=== PATIENT | male | born 1975 | race African-American/Black ===

== ENCOUNTER 2020-02-19 17:07 | Inpatient (IN) ==
[2020-02-19] MEDS ORDERED: NITROGLYCERIN 2% OINTMENT 30GM TUBE EXT STA (17:41)
[2020-02-19] MEDS ORDERED: FUROSEMIDE 40 MG/4 ML VIAL IV STA (17:41)
[2020-02-19 18:09] LABS: Basophils # (auto) 0.01 K/uL (0-0.2); Basophils % (auto) 0.1 %; Eosinophils # (auto) 0.05 K/uL (0-0.5); Eosinophils % (auto) 0.5 %; Hematocrit (blood only) 53.9 % (42-52); Hemoglobin 16.9 g/dL (14.0-18.0); Immature Granulocytes # (auto) 0.01 K/uL (0.00-0.02); Immature Granulocytes % (auto) 0.1 %; Lymphocytes # (auto) 1.09 K/uL (1.2-3.4); Lymphocytes % (auto) 11.5 %; Mean Corpuscular Hgb Conc 31.4 g/dL (32-36); Mean Corpuscular Volume 95.7 fL (80-100); Mean Platelet Volume 9.7 fL (7.4-10.4); Monocytes # (auto) 0.96 K/uL (0.11-0.59); Monocytes % (auto) 10.2 %; Neutrophils # (auto) 7.33 K/uL (1.4-6.5); Neutrophils % (auto) 77.6 %; Platelet Count 186 K/uL (130-400); RDW Standard Deviation 52.4 fL (36.4-46.3); Red Blood Count 5.63 M/uL (4.7-6.1); White Blood Count 9.45 K/uL (4.8-10.8)
--- NOTE | 2020-02-19 18:12 | XRay Report ---
XR chest 1V portable CLINICAL HISTORY: Dyspnea COMPARISON STUDY: No previous studies for comparison. FINDINGS: The heart is enlarged. There is radiographic evidence of mild pulmonary vascular congestion . There is no lobar consolidation. There are no significant pleural effusions. Interstitial markings may be accentuated due to the patient's large body habitus.[ IMPRESSION: Cardiomegaly and radiographic evidence of mild pulmonary vascular congestion. No lobar co nsolidation ACT 112: Negative or not required by law. Electronically signed by: Shahzad uLcio M.D. 02/19/2020 6:11 PM
[2020-02-19 18:20] LABS: INR 1.3 (0.9-1.1); Partial Thromboplastin Ratio 0.9; Partial Thromboplastin Time 26.3 Seconds (21.0-31.0); Prothrombin Time 13.3 Seconds (9.0-12.0)
[2020-02-19 18:25] LABS: BUN Creatinine Ratio 11.3 (10-20); Calcium 8.5 mg/dl (8.5-10.1); Est GFR (African American) 97.8; Est GFR (Non-African American) 84.3; Magnesium 1.9 mg/dl (1.8-2.4); Potassium 4.5 mmol/L (3.5-5.1)
[2020-02-19 18:30] LABS: Albumin Globulin Ratio 0.8 (0.9-2); Bilirubin,Total 0.4 mg/dl (0.2-1); Globulin 3.7 gm/dl (2.5-4.0); Total Protein 6.7 gm/dl (6.4-8.2)
[2020-02-19] MEDS ORDERED: ACETAMINOPHEN 500 MG TAB PO STA (19:02)
--- NOTE | 2020-02-19 19:38 | History & Physical Report ---
Date of Service February 19, 2020 Assessment & Plan (1) CHF (congestive heart failure): Patient is a 44-year-old male with no past medical history who presents with 1 year of slowly progressive lower extremity and abdominal edema acutely worsened over the last month. He has had new right-sided leg edema with additional scrotal/penile edema in the last week. He has been admitted for fluid overload with new oxygen requirement and new left bundle branch block. Acute hypoxic respiratory failure 2/2 CHF Patient with progressive lower extremity and lower abdominal swelling over the last year, progressive weight gain New shortness of breath over the last month, does not sleep laying down Chest x-ray shows cardiomegaly and radiographic evidence of mild pulmonary vascular congestion. No lobar consolidation No chest pain, no signs of ACS but patient had a left bundle branch block not previously known at urgent care Troponin as below, mild increase BNP 2090 TTE pending Brisk diuresis to Lasix 60 mg in ED, continue Lasix 3 times daily. KCl 20meq TID while diuresing. BMP ordered Q12, hold/reduce lasix if Cr bumps May [place] cath for patient comfort while diuresing Patient hypertensive on arrival to ED, good clinical response to both breathing and blood pressure to nitroglycerin 1 inch, continue at this time Nasal cannula oxygen as needed, titrate SPO2 greater than 90 Continue aggressive diuresis, follow clinically Elevated troponin Patient without current or prior chest pain Troponin mildly elevated to 0.132, trend every 6 hours x3 TTE pending as above Elevated INR, AST No known liver disease Patient denies any current or former alcohol use Given body habitus? Hepatic steatosis Liver ultrasound pending Daily tobacco use Nicotine patch 14 mg as needed Nicorette gum as needed Severe obesity, increased body habitus with high neck circumference Patient suspicious for hypo-ventilation syndrome/KATHLEEN No CPAP at home Defer CPAP overnight, will follow clinically but if patient with desats recommend counseling patient and trial at 10 mm H2O. Elevated H&H suggest may have some chronicity. DVT prophylaxis: Lovenox 40 mg every 12 hours FEN GI: No IV fluids, diuresing. Low-sodium diet CODE STATUS: Full code, discussed with patient Disposal: MedSurg with telemetry (2) Acute hypoxemic respiratory failure: (3) Bilateral edema of lower extremity: (4) LBBB (left bundle branch block): History of Present Illness Chief Complaint: Leg Swelling / Acute Hypoxia Primary Care Provider: NO PCP Mr. Ferrer is a 44yo M who presented to the ED with progressive L leg edema, R leg edema, abdominal edema, and new penile/scrotal edema. He recently moved to [place] from [place] ~1 year ago, had a doctor there but rarely/never went. Mr. Ferrer reports he has been increasing short of breath for several weeks. He notes about 1 year ago he had left leg swelling better in the mornign and worse throughout the day. In the last few months he has also had R leg swelling. He notes he sleeps sitting up because it is more comfortable, but is not sure if laying flat has any effect on his breathing. He denies chest pain, chest pressure, palpitations, dizziness, syncope, and presyncope. He denies past history of cardiac disease, diabetes. He endorses daily tobacco use. He has no heart disease in first-degree relatives, endorses a history of diabetes in his mother. Denies change in sensation is his extremities, denies recent illness including fever/chills/sweats and cold-like symptoms. Endorses a "smoker's c ough "for several weeks which improves throughout the day. He notes that his leg swelling improves after his legs are up overnight, but steadily worsened throughout the day. No other attempted treatments. He is seen with his girlfriend, who notes that he frequently eats deli meats. MHX: Denies other medical history Meds: Denies any chronic medications SHx: No surgical hx Social: Endorses 1ppd tobacco use history x26 years. Denies alcohol use. Endorses marijuana use, denies other recreational drug use. Lives at a home with his girlfriend. Code Status: Full Code Allergies Allergy/AdvReac Type Severity Reaction Status Date / Time shellfish derived Allergy EDEMA Verified 02/19/20 19:15 Home Medications Home Medications Medication Instructions Recorded Confirmed Type Otc Diurex Max 2 tabs PO Q6 PRN 02/19/20 02/19/20 History Past Med/Surg History Family History (Updated 02/19/20 @ 22:06 by Ema Camacho DO) Other Diabetes Hypertension Social History Smoking Status: Current every day smoker Tobacco Type: Cigarettes Cigarettes Per Day: 20; Do You Dip or Chew Tobacco: No; Hx Alcohol Use: No Hx Substance Use: Yes Last Used Substance: Days (ago) Preferred Language: Grenadian Collections Curator Required: No Beliefs That Will Affect Care: None Current Living Situation: Significant Other Feels Safe at Home: Yes Safety Concerns: Feels Safe At This Time Review of Systems Review of Systems: Constitutional: Denies fever, chills, malaise. Endorses weight gain of unknown amount Eyes: Denies vision change ENT: Denies ear pain, sore throat, sinus pain Cardiovascular: Denies Chest pain, chest pressure, palpitations. Endorses extremity swelling Respiratory: Endorses shortness of breath with chronic minimally productive cough. Gastrointestinal: Denies abdominal pain, nausea, vomiting, constipation, diarrhea. Endorses abdominal swelling. Genitourinary: Denies pain with urination, urinary urgency, urinary frequency. Endorses penis and scrotal swelling Musculoskeletal: Denies acute weakness, muscle aches/pain, joint aches/pain Integumentary:Denies acute rash, lesions, bruising Neurological: Denies headache, numbness, tingling, focal weakness Physical Exam Physical Exam: General: A&Ox3. NAD. Cooperative. HEENT: Atraumatic, normocephalic. Pulm: Distant breath sounds, moderate air movement, crackles appreciated at the lung bases bilaterally. On oxygen nasal cannula. Cardiac: RRR, -mrg. Radial pulses intact and symmetrical. Abdominal: Obese, distended, edema present through the low abdomen. Nontender, bowel sounds intact. : Scrotal and penile edema present. CN II: Visual duong are full to confrontation. Pupils are equal and react to light and accomidation. Visual acuity grossly intact. CN III, IV, : At primary gaze, there is no eye deviation. EoM intact without nystagmus. CN VII: No facial asymmetry CN VII: Hearing is grossly intact. CN IX, X: Phonation is normal without dysarthria. CN XI: Head turning and shoulder shrug are intact Extremity: Right and left legs grossly edematous with tense slightly pitting edema through the thigh. 1 cm superficial abrasion present on right medial lower leg, no purulence or erythema. Nontender to palpation bilaterally. Sensory: Light touch intact in upper and low extremities without deficit or asymmetry. 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, interosseous 5/5 LUE: Shoulder flexion/extension/internal rotation/external rotation, elbow flexion/extension, finger flexion/extension, television maintenance worker strength, interosseous 5/5 RLE: Hip flexion, knee flexion/extension, ankle plantar flexion/dorsiflexion 5/5 LLE: Hip flexion, knee flexion/extension, ankle plantar flexion/dorsiflexion 5/5 Results & Data Results & Data ([facility]) Vital Signs (Past 12 Hours) Vital Signs Temp Pulse Resp BP Pulse Ox 02/19/20 17:27 86 L 02/19/20 17:12 36.9 C 91 H 26 H 180/117 H 86 L Laboratory Results Lab Results 02/19/20 02/19/20 02/19/20 Range/Units 18:00 18:00 18:00 WBC 9.45 (4.8-10.8) K/uL RBC 5.63 (4.7-6.1) M/uL Hgb 16.9 (14.0-18.0) g/dL Hct 53.9 H (42-52) % MCV 95.7 (80-100) fL MCH 30.0 (25-34) pg MCHC 31.4 L (32-36) g/dL RDW Std Deviation 52.4 H (36.4-46.3) fL RDW Coeff of Tramaine 15.0 H (11.5-14.5) % Plt Count 186 (130-400) K/uL MPV 9.7 (7.4-10.4) fL Immature Gran % (Auto) 0.1 % Neut % (Auto) 77.6 % Lymph % (Auto) 11.5 % Cole % (Auto) 10.2 % Eos % (Auto) 0.5 % Baso % (Auto) 0.1 % Neut # (Auto) 7.33 H (1.4-6.5) K/uL Lymph # (Auto) 1.09 L (1.2-3.4) K/uL Cole # (Auto) 0.96 H (0.11-0.59) K/uL Eos # (Auto) 0.05 (0-0.5) K/uL Baso # (Auto) 0.01 (0-0.2) K/uL Immature Gran # (Auto) 0.01 (0.00-0.02) K/uL PT 13.3 H (9.0-12.0) Seconds INR 1.3 H (0.9-1.1) APTT 26.3 (21.0-31.0) Seconds PTT Ratio 0.9 Sodium 141 (136-145) mmol/L Potassium 4.5 (3.5-5.1) mmol/L Chloride 102 (98-107) mmol/L Carbon Dioxide 38 H (21-32) mmol/L Anion Gap 1.0 L (3-11) BUN 12 (7-18) mg/dl Creatinine 1.06 (0.6-1.4) mg/dl Est Cr Clr Drug Dosing 166.0 ml/min Est GFR ( Amer) 97.8 Est GFR (Non-Af Amer) 84.3 BUN/Creatinine Ratio 11.3 (10-20) Glucose 91 (70-99) mg/dl Calcium 8.5 (8.5-10.1) mg/dl Magnesium 1.9 (1.8-2.4) mg/dl Total Bilirubin 0.4 (0.2-1) mg/dl AST 38 H (15-37) U/L ALT 43 (12-78) U/L Alkaline Phosphatase 66 (45-117) U/L Troponin I (0-0.045) ng/ml NT-Pro-B Natriuret Pep 2091 H (0-450) pg/ml Total Protein 6.7 (6.4-8.2) gm/dl Albumin 3.0 L (3.4-5.0) gm/dl Globulin 3.7 (2.5-4.0) gm/dl Albumin/Globulin Ratio 0.8 L (0.9-2) 02/19/20 Range/Units 19:17 WBC (4.8-10.8) K/uL RBC (4.7-6.1) M/uL Hgb (14.0-18.0) g/dL Hct (42-52) % MCV (80-100) fL MCH (25-34) pg MCHC (32-36) g/dL RDW Std Deviation (36.4-46.3) fL RDW Coeff of Tramaine (11.5-14.5) % Plt Count (130-400) K/uL MPV (7.4-10.4) fL Immature Gran % (Auto) % Neut % (Auto) % Lymph % (Auto) % Cole % (Auto) % Eos % (Auto) % Baso % (Auto) % Neut # (Auto) (1.4-6.5) K/uL Lymph # (Auto) (1.2-3.4) K/uL Cole # (Auto) (0.11-0.59) K/uL Eos # (Auto) (0-0.5) K/uL Baso # (Auto) (0-0.2) K/uL Immature Gran # (Auto) (0.00-0.02) K/uL PT (9.0-12.0) Seconds INR (0.9-1.1) APTT (21.0-31.0) Seconds PTT Ratio Sodium (136-145) mmol/L Potassium (3.5-5.1) mmol/L Chloride (98-107) mmol/L Carbon Dioxide (21-32) mmol/L Anion Gap (3-11) BUN (7-18) mg/dl Creatinine (0.6-1.4) mg/dl Est Cr Clr Drug Dosing ml/min Est GFR ( Amer) Est GFR (Non-Af Amer) BUN/Creatinine Ratio (10-20) Glucose (70-99) mg/dl Calcium (8.5-10.1) mg/dl Magnesium (1.8-2.4) mg/dl Total Bilirubin (0.2-1) mg/dl AST (15-37) U/L ALT (12-78) U/L Alkaline Phosphatase (45-117) U/L Troponin I 0.132 H* (0-0.045) ng/ml NT-Pro-B Natriuret Pep (0-450) pg/ml Total Protein (6.4-8.2) gm/dl Albumin (3.4-5.0) gm/dl Globulin (2.5-4.0) gm/dl Albumin/Globulin Ratio (0.9-2) Diagnostic Findings XR chest 1V portable CLINICAL HISTORY: Dyspnea COMPARISON STUDY: No previous studies for comparison. FINDINGS: The heart is enlarged. There is radiographic evidence of mild pulmonary vascular congestion. There is no lobar consolidation. There are no significant pleural effusions. Interstitial markings may be accentuated due to the patient's large body habitus.[ IMPRESSION: Cardiomegaly and radiographic evidence of mild pulmonary vascular congestion. No lobar consolidation ACT 112: Negative or not required by law. Electronically signed by: Shahzad Lucio M.D. 02/19/2020 6:11 PM Dictated: 02/19/201809 Transcribed: 02/19/201809 ECG Additional Comments: EKG with sinus rhythm with sinus arrhythmia, LBBB, UN=377, SMF=876, EWj=783 Supervising Physician Co-Signing Physician Notes Patient seen and examined, chart reviewed, case discussed with Dr. Albert and I agree with his assessment and plan as docuemented above Resident Activity Tracking Resident Involvement: Resident Care Provided Care Provided: Adult Hospital Medicine
--- NOTE | 2020-02-19 20:25 | Emergency Department Note ---
History of Present Illness General Chief complaint: Edema To Extremity Stated complaint: EDEMA TO BOTH LEGS Source: patient and family Mode of arrival: ambulatory Limitations: no limitations History of Present Illness Provider complaint: Increased swelling Maximum Pain Intensity: 6 This patient is a 44-year-old male who presents emergency department with complaints of swelling from the lower extremities up through the mid abdomen. He noted today that his penis and scrotum developed edema and became concerned. He has always had some dependent edema in his left lower extremity but now his right side is affected as well. Patient states he initially blamed some exertional dyspnea on a new "vape cartridge." He denies any chest pain. Patient denies any fevers, cough, vomiting or diarrhea. He does not see a physician regularly. Home Medications Home Medications Medication Instructions Recorded Confirmed Type Otc Diurex Max 2 tabs PO Q6 PRN 02/19/20 02/19/20 History Allergies Allergy/AdvReac Type Severity Reaction Status Date / Time shellfish derived Allergy EDEMA Verified 02/19/20 19:15 Past Med/Surg History Social History Smoking Status: Current every day smoker Tobacco Type: Cigarettes Feels Safe at Home: Yes Review of Systems See HPI for pertinent positives & negatives. and A total of 10 systems reviewed and were otherwise negative Physical Exam Vital Signs Vital Signs - 24 hr 02/19/20 17:12 02/19/20 17:27 Temperature 36.9 C Temperature Source Oral Pulse Rate 91 H Respiratory Rate 26 H Blood Pressure 180/117 H Blood Pressure Mean 138 Pulse Oximetry 86 L 86 L Oxygen Delivery Method Room Air Room Air Nasal Cannula Oxygen Flow Rate 0 Sepsis Recent Fever Within 48 Hours No Sepsis New/Unexplained Change in Mental Status No Sepsis Action Taken by Nursing No Action Required Oxygen Flow Rate - Titration 2 Pulse Oximetry Post Tiitration 96 Vital signs reviewed. General: Chronically ill-appearing, morbidly obese 44-year-old male HEENT: No scleral icterus, PERRLA, neck supple. Atraumatic. Cardiovascular: Regular rate and rhythm Pulmonary: Crackles to the lower lung duong bilaterally, increased work of breathing on nasal cannula oxygen. Abdomen: Soft, nontender, distended and morbidly obese with tense edema to the umbilicus. Musculoskeletal: Atraumatic, significant lower extremity edema bilaterally. Neurologic: Patient awake alert and oriented x 3 Skin: Warm, dry, 1 cm open, weeping wound to the right anterior ervin. Course Administered Medications Discontinued Medications Acetaminophen (Tylenol) 1,000 mg PO NOW STA Stop: 02/19/20 19:03 Last Admin: 02/19/20 19:20 Dose: 1,000 mg Documented by: [id number] Furosemide (Lasix) 60 mg IV NOW STA Stop: 02/19/20 17:42 Last Admin: 02/19/20 18:09 Dose: 60 mg Documented by: [id number] Nitroglycerin (Nitro-Bid 2%) 1 inch EXT NOW STA Stop: 02/19/20 17:42 Last Admin: 02/19/20 18:09 Dose: 1 inch Documented by: [id number] Critical Care Time Critical Care Time: Yes I have personally spent greater than 30 minutes of critical care time in the direct management of this patient. This includes bedside care, interpretation of diagnostic studies, and testing, discussion with consultants, patient, and family members, and other required patient management activities. This 30 minutes is in excess of all separately billable procedures. Medical Decision Making Differential Diagnosis Differential diagnosis: Etiologies such as infections, reactive airway disease, COPD, pneumonia, pleural effusion, pulmonary edema, ARDS, pneumothorax, CHF, cardiac ischemia, cardiac tamponade, dysrhythmia, anemia, pulmonary embolism, musculoskeletal, gastrointestinal process, as well as others were entertained. Home Medications Current Medication List: was personally reviewed by me Laboratory Data Attestation: I reviewed the patient's lab results. Result diagrams: 02/19/20 18:00 02/19/20 18:00 Lab Results 02/19/20 02/19/20 02/19/20 Range/Units 18:00 18:00 18:00 WBC 9.45 (4.8-10.8) K/uL RBC 5.63 (4.7-6.1) M/uL Hgb 16.9 (14.0-18.0) g/dL Hct 53.9 H (42-52) % MCV 95.7 (80-100) fL MCH 30.0 (25-34) pg MCHC 31.4 L (32-36) g/dL RDW Std Deviation 52.4 H (36.4-46.3) fL RDW Coeff of Tramaine 15.0 H (11.5-14.5) % Plt Count 186 (130-400) K/uL MPV 9.7 (7.4-10.4) fL Immature Gran % (Auto) 0.1 % Neut % (Auto) 77.6 % Lymph % (Auto) 11.5 % [place] % (Auto) 10.2 % Eos % (Auto) 0.5 % Baso % (Auto) 0.1 % Neut # (Auto) 7.33 H (1.4-6.5) K/uL Lymph # (Auto) 1.09 L (1.2-3.4) K/uL [place] # (Auto) 0.96 H (0.11-0.59) K/uL Eos # (Auto) 0.05 (0-0.5) K/uL Baso # (Auto) 0.01 (0-0.2) K/uL Immature Gran # (Auto) 0.01 (0.00-0.02) K/uL PT 13.3 H (9.0-12.0) Seconds INR 1.3 H (0.9-1.1) APTT 26.3 (21.0-31.0) Seconds PTT Ratio 0.9 Sodium 141 (136-145) mmol/L Potassium 4.5 (3.5-5.1) mmol/L Chloride 102 (98-107) mmol/L Carbon Dioxide 38 H (21-32) mmol/L Anion Gap 1.0 L (3-11) BUN 12 (7-18) mg/dl Creatinine 1.06 (0.6-1.4) mg/dl Est Cr Clr Drug Dosing 166.0 ml/min Est GFR ( Amer) 97.8 Est GFR (Non-Af Amer) 84.3 BUN/Creatinine Ratio 11.3 (10-20) Glucose 91 (70-99) mg/dl Calcium 8.5 (8.5-10.1) mg/dl Magnesium 1.9 (1.8-2.4) mg/dl Total Bilirubin 0.4 (0.2-1) mg/dl AST 38 H (15-37) U/L ALT 43 (12-78) U/L Alkaline Phosphatase 66 (45-117) U/L Troponin I (0-0.045) ng/ml NT-Pro-B Natriuret Pep 2091 H (0-450) pg/ml Total Protein 6.7 (6.4-8.2) gm/dl Albumin 3.0 L (3.4-5.0) gm/dl Globulin 3.7 (2.5-4.0) gm/dl Albumin/Globulin Ratio 0.8 L (0.9-2) 02/19/20 Range/Units 19:17 WBC (4.8-10.8) K/uL RBC (4.7-6.1) M/uL Hgb (14.0-18.0) g/dL Hct (42-52) % MCV (80-100) fL MCH (25-34) pg MCHC (32-36) g/dL RDW Std Deviation (36.4-46.3) fL RDW Coeff of Tramaine (11.5-14.5) % Plt Count (130-400) K/uL MPV (7.4-10.4) fL Immature Gran % (Auto) % Neut % (Auto) % Lymph % (Auto) % [place] % (Auto) % Eos % (Auto) % Baso % (Auto) % Neut # (Auto) (1.4-6.5) K/uL Lymph # (Auto) (1.2-3.4) K/uL [place] # (Auto) (0.11-0.59) K/uL Eos # (Auto) (0-0.5) K/uL Baso # (Auto) (0-0.2) K/uL Immature Gran # (Auto) (0.00-0.02) K/uL PT (9.0-12.0) Seconds INR (0.9-1.1) APTT (21.0-31.0) Seconds PTT Ratio Sodium (136-145) mmol/L Potassium (3.5-5.1) mmol/L Chloride (98-107) mmol/L Carbon Dioxide (21-32) mmol/L Anion Gap (3-11) BUN (7-18) mg/dl Creatinine (0.6-1.4) mg/dl Est Cr Clr Drug Dosing ml/min Est GFR ( Amer) Est GFR (Non-Af Amer) BUN/Creatinine Ratio (10-20) Glucose (70-99) mg/dl Calcium (8.5-10.1) mg/dl Magnesium (1.8-2.4) mg/dl Total Bilirubin (0.2-1) mg/dl AST (15-37) U/L ALT (12-78) U/L Alkaline Phosphatase (45-117) U/L Troponin I 0.132 H* (0-0.045) ng/ml NT-Pro-B Natriuret Pep (0-450) pg/ml Total Protein (6.4-8.2) gm/dl Albumin (3.4-5.0) gm/dl Globulin (2.5-4.0) gm/dl Albumin/Globulin Ratio (0.9-2) Imaging Data Radiologist's Impression: XR chest 1V portable CLINICAL HISTORY: Dyspnea COMPARISON STUDY: No previous studies for comparison. FINDINGS: The heart is enlarged. There is radiographic evidence of mild pulmonar y vascular congestion. There is no lobar consolidation. There are no significant pleural effusions. Interstitial markings may be accentuated due to the patient's large body habitus.[ IMPRESSION: Cardiomegaly and radiographic evidence of mild pulmonary vascular congestion. No lobar consolidation ACT 112: Negative or not required by law. Electronically signed by: Shahzad Lucio M.D. 02/19/2020 6:11 PM Dictated: 02/19/201809 Transcribed: 02/19/201809 ECG Data Attestation: I personally reviewed and interpreted this ECG as follows: Indication: + SOB/dyspnea Rate (beats per minute): 78 Rhythm: + normal sinus and + sinus with SA ECG Intervals/blocks: + Left bundle branch block and + Prolonged QT (476) ECG ST segments: + Nonspecific ST abnormalities ECG Findings: no PACs and no PVCs Comparison ECG Date: no prior available Blood Pressure Blood Pressure Findings: Elevated blood pressure Blood Pressure Disposition: further management by hospitalist MDM Narrative This patient was evaluated and appeared to be in no significant distress. An order was placed for cardiac monitoring and the patient is noted to be in a sinus rhythm at 91 bpm. EKG confirms a left bundle branch block. There is tense edema of the lower extremities up through the mid abdomen. Patient was given 60 mg of IV Lasix, nitroglycerin 1 inch to the anterior chest wall. Patient's laboratory work notes a normal WBC and hemoglobin. BNP is elevated at 2091. Patient's case was discussed with the hospitalist service. Troponin resulted after this discussion and is elevated at 0.132. Further management will be deferred to their service. Patient is are informed of the findings and agree with the plan for admission and further management. Impression & Plan LBBB (left bundle branch block), CHF (congestive heart failure), Acute hypoxemic respiratory failure Discharge Plan Visit Data Chief Complaint: Edema To Extremity Stated Complaint: EDEMA TO BOTH LEGS ED Provider: Gemma Ingram Discharge Problem: LBBB (left bundle branch block), CHF (congestive heart failure), Acute hypoxemic respiratory failure Forms Stand Alone Forms: [employer] Prescriptions Prescriptions: No Action Otc Diurex Max 2 tabs PO Q6 PRN (Reason: Edema) RF: 0 Discharge Problem: CHF (congestive heart failure) Qualifiers: Heart failure type: unspecified Heart failure chronicity: acute Qualified Code(s): I50.9 - Heart failure, unspecified
[2020-02-19] MEDS ORDERED: ONDANSETRON INJ 2 MG/ML 2 ML VIAL IV PRN (21:12)
[2020-02-19] MEDS ORDERED: NICOTINE 14 MG/24 HR PATCH TD PRN (21:12)
[2020-02-19] MEDS ORDERED: POLYETHYLENE (MIRALAX) 17 GM PACK PO PRN (21:12)
[2020-02-19] MEDS ORDERED: NICOTINE POLACRILEX 2 MG GUM MT PRN (21:12)
[2020-02-19] MEDS: ENOXAPARIN INJ 40 MG/0.4 ML SYR SQ SCH (23:17)
[2020-02-19] MEDS: POTASSIUM CHLORIDE 20 MEQ TABCR PO SCH (23:18)
[2020-02-20] MEDS ORDERED: FUROSEMIDE 40 MG/4 ML VIAL IV ONE
[2020-02-20 01:51] LABS: Thyroid Stimulating Hormone 0.767 uIu/ml (0.300-4.500); Troponin I 0.13 ng/ml (0-0.045)
[2020-02-20 02:02] LABS: Base Excess VBG 11.2 mEq/L; HCO3 VBG 45 mmol/L; PCO2 VBG 107 mmHg (38-50); PO2 VBG 19 mmHg; pH VBG 7.24 (7.36-7.41)
[2020-02-20 02:06] LABS: Oxygen Saturation VBG < 60.0 %
[2020-02-20 04:03] LABS: Appearance Urine Clear (Clear); Bilirubin Urine Negative (Negative); Blood Urine Negative (Negative); Color Urine Yellow; Glucose Urine UA Negative (Negative); Ketones Urine Negative (Negative); Leukocyte Esterase Urine Negative (Negative); Nitrite Urine Negative (Negative); Protein Urine Negative (Negative); Specific Gravity Urine 1.008 (1.000-1.030); Urobilinogen Urine Negative (Negative)
--- NOTE | 2020-02-20 04:45 | Billing Data ---
Date of Service February 19, 2020 Coding Level of Care Code 33228 Initial Inpt Care Lvl 3
[2020-02-20 07:17] LABS: Basophils # (auto) 0.01 K/uL (0-0.2); Basophils % (auto) 0.1 %; Eosinophils # (auto) 0.03 K/uL (0-0.5); Eosinophils % (auto) 0.3 %; Hematocrit (blood only) 53.5 % (42-52); Hemoglobin 16.6 g/dL (14.0-18.0); Immature Granulocytes # (auto) 0.03 K/uL (0.00-0.02); Immature Granulocytes % (auto) 0.3 %; Lymphocytes # (auto) 1.22 K/uL (1.2-3.4); Lymphocytes % (auto) 11.3 %; Mean Corpuscular Hemoglobin 29.4 pg (25-34); Mean Corpuscular Volume 94.7 fL (80-100); Mean Platelet Volume 9.5 fL (7.4-10.4); Monocytes # (auto) 0.46 K/uL (0.11-0.59); Monocytes % (auto) 4.2 %; Neutrophils # (auto) 9.08 K/uL (1.4-6.5); Neutrophils % (auto) 83.8 %; Platelet Count 181 K/uL (130-400); RDW Coefficient of Variation 14.8 % (11.5-14.5); RDW Standard Deviation 51.6 fL (36.4-46.3); Red Blood Count 5.65 M/uL (4.7-6.1); White Blood Count 10.83 K/uL (4.8-10.8)
[2020-02-20 07:41] LABS: Albumin Level 3.1 gm/dl (3.4-5.0); BUN Creatinine Ratio 12.3 (10-20); Calcium 8.6 mg/dl (8.5-10.1); Est GFR (African American) 106.2; Est GFR (Non-African American) 91.6; Potassium 3.9 mmol/L (3.5-5.1)
[2020-02-20] MEDS: POTASSIUM CHLORIDE 20 MEQ TABCR PO SCH ×3 (07:41→20:11)
[2020-02-20 07:44] LABS: Albumin Globulin Ratio 0.8 (0.9-2); Bilirubin,Total 0.7 mg/dl (0.2-1); Globulin 3.8 gm/dl (2.5-4.0); Total Protein 6.9 gm/dl (6.4-8.2)
--- NOTE | 2020-02-20 07:44 | Ultrasound Report ---
US liver CLINICAL HISTORY: elevated tranaminase, INR. ?steatosis abnormal liver enzymes COMPARISON STUDY: No previous studies for comparison. FINDINGS: Fatty infiltration of the liver. Normal gallbladder. Slight gallbladder wall thickening at 3.5 mm. No pericholecystic fluid. Poor visibility of the biliary ductal system. Right kidney is negative for hydronephrosis. IMPRESSION: Limited exam due to patient body habitus. Fatty replacement of the liver. ACT 112: Negative or not required by law. The above report was generated using voice recognition software. It may contain grammatical, syntax or spelling errors. Electronically signed by: Jerry Horan M.D. 02/20/2020 7:42 AM
[2020-02-20] MEDS ORDERED: FUROSEMIDE 40 MG/4 ML VIAL IV SCH (09:00)
[2020-02-20] MEDS: ENOXAPARIN INJ 40 MG/0.4 ML SYR SQ SCH ×2 (10:05→22:48)
[2020-02-20] MEDS: FUROSEMIDE 60 MG in SYRINGE 0 ML IV SCH ×3 (10:25→20:11)
--- NOTE | 2020-02-20 13:29 | Electrocardiogram Report ---
Test Reason : Blood Pressure : / mmHG Vent. Rate : 078 BPM Atrial Rate : 078 BPM P-R Int : 162 ms QRS Dur : 152 ms QT Int : 418 ms P-R-T Axes : 070 -11 113 degrees QTc Int : 476 ms Sinus rhythm with marked sinus arrhythmia Possible Left atrial enlargement Left bundle branch block Abnormal ECG No previous ECGs available Confirmed by Miki Pickering ([id number]) on 02/20/2020 1:28:46 PM Referred By: REFERRED SELF Confirmed By:Miki Pickering
[2020-02-20] MEDS: ACETAMINOPHEN 325 MG TAB PO PRN (13:50)
--- NOTE | 2020-02-20 14:47 | XCELERA ---
[id number]
--- NOTE | 2020-02-20 16:35 | Hospitalist Progress Note ---
Date of Service February 20, 2020 Assessment & Plan (1) Acute respiratory failure with hypoxia and hypercapnia: 44 y/o M with no PMHx who presents with 1 year of slowly progressive lower extremity and abdominal edema acutely worsened over the last month. He has had new right-sided leg edema with additional scrotal/penile edema in the last week. He has been admitted for fluid overload with new oxygen requirement and new left bundle branch block. Acute hypercapneic/hypoxic respiratory failure 2/2 CHF Nasal cannula oxygen as needed, titrate SPO2 greater than 90. -OHS likely contributing to hypercapnia. follow. Acute Diastolic CHF Patient with progressive lower extremity and lower abdominal swelling over the last year, progressive weight gain New shortness of breath over the last month, does not sleep laying down Chest x-ray shows cardiomegaly and radiographic evidence of mild pulmonary vascular congestion. No lobar consolidation No chest pain, no signs of ACS but patient had a left bundle branch block not previously known at urgent care Troponin as below, mild increase BNP 2090 TTE - EF 50-55%, LVH Brisk diuresis to Lasix 60 mg in ED, continue Lasix 3 times daily. KCl 20meq TID while diuresing. BMP ordered Q12, hold/reduce lasix if Cr bumps [place] cath for patient comfort while diuresing Hypertension Patient hypertensive on arrival to ED, good clinical response to both breathing and blood pressure to nitroglycerin 1 inch, continue -Add antihypertensive - Lisinopril. Elevated troponin Patient without current or prior chest pain Troponin mildly elevated to 0.132, trend every 6 hours x3 TTE with no wall motion abnormality Elevated INR, AST No known liver disease Patient denies any current or former alcohol use Hepatic steatosis on Liver ultrasound Daily tobacco use Nicotine patch 14 mg as needed Nicorette gum as needed Severe obesity, increased body habitus with high neck circumference Patient suspicious for hypo-ventilation syndrome/KATHLEEN No CPAP at home Defer CPAP overnight, will follow clinically but if patient with desats recomme nd counseling patient and trial at 10 mm H2O. Elevated H&H suggest may have some chronicity. DVT prophylaxis: Lovenox 40 mg every 12 hours FEN GI: No IV fluids, diuresing. Low-sodium diet CODE STATUS: Full code, discussed with patient Disposal: MedSurg with telemetry (2) CHF (congestive heart failure): (3) Hypertension: (4) Troponin level elevated: Admission and Anticipated Discharge Date Admission Date: February 19, 2020 Subjective Not feeling good about being in the hospital. wants to go home. thinks there is nothing wrong with him. denies any chest pain, breathing same as before. no fever. Physical Exam Constitutional: + in distress Respiratory: + respiratory distress Cardiovascular: Rate/Rhythm: regular rate and regular rhythm Extremities: + pedal edema abdominal wall edema + Results & Data Results & Data ([facility]) Vital Signs (Past 12 Hours) Vital Signs Temp Pulse Pulse Resp BP Pulse Ox 02/20/20 15:26 36.9 C 81 20 164/113 H 94 02/20/20 15:00 81 02/20/20 13:57 184/87 H 02/20/20 11:46 180/95 H 02/20/20 11:27 36.8 C 90 20 194/97 H 96 02/20/20 07:42 97 02/20/20 07:27 36.9 C 81 20 149/81 H 83 L (1) CHF (congestive heart failure) Heart failure chronicity: acute Heart failure type: unspecified Qualified Code(s): I50.9 - Heart failure, unspecified
[2020-02-20] MEDS ORDERED: lisinopriL 20 MG TAB PO ONE (17:00)
[2020-02-20 19:00] LABS: BUN Creatinine Ratio 12.4 (10-20); Calcium 8.8 mg/dl (8.5-10.1); Creatinine Clr Calc Pharmacy 161.9 ml/min; Est GFR (African American) 96.7; Est GFR (Non-African American) 83.4; Magnesium 1.9 mg/dl (1.8-2.4); Potassium 3.5 mmol/L (3.5-5.1)
[2020-02-20] MEDS ORDERED: POTASSIUM CHLORIDE 20 MEQ TABCR PO STA (19:02)
[2020-02-20 21:33] LABS: BUN Creatinine Ratio 12.8 (10-20); Calcium 9.1 mg/dl (8.5-10.1); Creatinine Clr Calc Pharmacy 163.5 ml/min; Est GFR (African American) 97.8; Est GFR (Non-African American) 84.3; Potassium 3.7 mmol/L (3.5-5.1)
[2020-02-21] MEDS: FUROSEMIDE 60 MG in SYRINGE 0 ML IV SCH ×3 (08:41→21:45)
[2020-02-21] MEDS: POTASSIUM CHLORIDE 20 MEQ TABCR PO SCH ×3 (08:41→21:45)
[2020-02-21] MEDS: lisinopriL 20 MG TAB PO SCH (08:41)
[2020-02-21] MEDS: ENOXAPARIN INJ 40 MG/0.4 ML SYR SQ SCH ×2 (08:42→21:45)
[2020-02-21] MEDS: ACETAMINOPHEN 325 MG TAB PO PRN ×2 (14:26→21:50)
--- NOTE | 2020-02-21 14:40 | Hospitalist Progress Note ---
Date of Service February 21, 2020 Assessment & Plan (1) Acute respiratory failure with hypoxia and hypercapnia: 44 y/o M with no PMHx who presents with 1 year of slowly progressive lower extremity and abdominal edema acutely worsened over the last month. He has had new right-sided leg edema with additional scrotal/penile edema in the last week. He has been admitted for fluid overload with new oxygen requirement and new left bundle branch block. Acute hypercapneic/hypoxic respiratory failure 2/2 CHF Nasal cannula oxygen as needed, titrate SPO2 greater than 90. -OHS likely contributing to hypercapnia. follow. Acute Diastolic CHF Patient with progressive lower extremity and lower abdominal swelling over the last year, progressive weight gain New shortness of breath over the last month, does not sleep laying down Chest x-ray shows cardiomegaly and radiographic evidence of mild pulmonary vascular congestion. No lobar consolidation No chest pain, no signs of ACS but patient had a left bundle branch block not previously known at urgent care Troponin as below, mild increase BNP 2090 TTE - EF 50-55%, LVH Brisk diuresis to Lasix 60 mg in ED, continue Lasix 3 times daily. KCl 20meq TID while diuresing. Haven't been able to track urine output well. Patient declining catheter. -Weight down since admission. follow. -BMP, mag in am. Leg cramps -likely from diuresis. follow K and mag level and replace Hypertension Patient hypertensive on arrival to ED, good clinical response to both breathing and blood pressure to nitroglycerin 1 inch, continue -Added antihypertensive - Lisinopril with some improvement - few readings in 120s. - consider adding amlodipine if persistently elevated. Elevated troponin Patient without current or prior chest pain Troponin mildly elevated to 0.132, Likely leak from chf TTE with no wall motion abnormality Elevated INR, AST No known liver disease Patient denies any current or former alcohol use Hepatic steatosis on Liver ultrasound Daily tobacco use Nicotine patch 14 mg as needed Nicorette gum as needed Severe obesity, increased body habitus with high neck circumference Patient suspicious for hypo-ventilation syndrome/KATHLEEN No CPAP at home Will follow clinically but if patient with desats recommend counseling patient and trial of CPAP at 10 mm H2O. Elevated H&H suggest may have some chronicity. DVT prophylaxis: Lovenox 40 mg every 12 hours FEN GI: No IV fluids, diuresing. Low-sodium diet CODE STATUS: Full code, Disposal: MedSurg with telemetry (2) CHF (congestive heart failure): (3) Hypertension: (4) Troponin level elevated: Admission and Anticipated Discharge Date Admission Date: February 19, 2020 Subjective breathing better. denies chest pain, doesn't feel as swollen no fever, again insisting that he want to go home. Physical Exam Constitutional: + obese Respiratory: + respiratory distress; no cough Auscultation: + diminished lung sounds Cardiovascular: Rate/Rhythm: regular rate and regular rhythm Extremities: + pedal edema Gastrointestinal (Abdomen): normal bowel sounds, soft, nontender, no hepatosplenomegaly abdominal wall with decreased edema Results & Data Results & Data ([facility]) Vital Signs (Past 12 Hours) Vital Signs Temp Pulse Pulse Pulse Resp BP BP 02/21/20 14:27 36.9 C 81 20 163/68 H 02/21/20 11:15 36.8 C 67 20 126/68 02/21/20 07:21 36.8 C 91 H 20 164/102 H 02/21/20 06:29 81 02/21/20 04:00 36.5 C 91 H 18 167/96 H Pulse Ox 02/21/20 14:27 89 L 02/21/20 11:15 94 02/21/20 07:21 93 02/21/20 06:29 02/21/20 04:00 95 (1) CHF (congestive heart failure) Heart failure chronicity: acute Heart failure type: unspecified Qualified Code(s): I50.9 - Heart failure, unspecified
[2020-02-22] MEDS: POTASSIUM CHLORIDE 20 MEQ TABCR PO SCH ×2 (08:45→14:24)
[2020-02-22] MEDS: lisinopriL 20 MG TAB PO SCH (08:45)
[2020-02-22] MEDS: FUROSEMIDE 60 MG in SYRINGE 0 ML IV SCH ×2 (08:46→14:24)
[2020-02-22 09:25] LABS: BUN Creatinine Ratio 12.5 (10-20); Calcium 9.3 mg/dl (8.5-10.1); Creatinine Clr Calc Pharmacy 190.1 ml/min; Est GFR (African American) 120.8; Est GFR (Non-African American) 104.2; Magnesium 2.1 mg/dl (1.8-2.4)
[2020-02-22] MEDS: ENOXAPARIN INJ 40 MG/0.4 ML SYR SQ SCH (09:42)
[2020-02-22 12:11] LABS: Estimated Average Glucose 154 mg/dl
--- NOTE | 2020-02-22 13:04 | Discharge Summary ---
Date of Service February 22, 2020 Admission HPI Per Admitting Provider Mr. Ferrer is a 44yo M who presented to the ED with progressive L leg edema, R leg edema, abdominal edema, and new penile/scrotal edema. He recently moved to [place] from [place] ~1 year ago, had a doctor there but rarely/never went. Mr. Ferrer reports he has been increasing short of breath for several weeks. He notes about 1 year ago he had left leg swelling better in the mornign and worse throughout the day. In the last few months he has also had R leg swelling. He notes he sleeps sitting up because it is more comfortable, but is not sure if laying flat has any effect on his breathing. He denies chest pain, chest pressure, palpitations, dizziness, syncope, and presyncope. He denies past history of cardiac disease, diabetes. He endorses daily tobacco use. He has no heart disease in first-degree relatives, endorses a history of diabetes in his mother. Denies change in sensation is his extremities, denies recent illness including fever/chills/sweats and cold-like symptoms. Endorses a "smoker's cough "for several weeks which improves throughout the day. He notes that his leg swelling improves after his legs are up overnight, but steadily worsened throughout the day. No other attempted treatments. He is seen with his girlfriend, who notes that he frequently eats deli meats. MHX: Denies other medical history Meds: Denies any chronic medications SHx: No surgical hx Social: Endorses 1ppd tobacco use history x26 years. Denies alcohol use. Endorses marijuana use, denies other recreational drug use. Lives at a home with his girlfriend. Code Status: Full Code Admission Exam Per Admitting Provider General: A&Ox3. NAD. Cooperative. HEENT: Atraumatic, normocephalic. Pulm: Distant breath sounds, moderate air movement, crackles appreciated at the lung bases bilaterally. On oxygen nasal cannula. Cardiac: RRR, -mrg. Radial pulses intact and symmetrical. Abdominal: Obese, distended, edema present through the low abdomen. Nontender, bowel sounds intact. : Scrotal and penile edema present. CN II: Visual duong are full to confrontation. Pupils are equal and react to light and accomidation. Visual acuity grossly intact. CN III, IV, : At primary gaze, there is no eye deviation. EoM intact without nystagmus. CN VII: No facial asymmetry CN VII: Hearing is grossly intact. CN IX, X: Phonation is normal without dysarthria. CN XI: Head turning and shoulder shrug are intact Extremity: Right and left legs grossly edematous with tense slightly pitting edema through the thigh. 1 cm superficial abrasion present on right medial lower leg, no purulence or erythema. Nontender to palpation bilaterally. Sensory: Light touch intact in upper and low extremities without deficit or asymmetry. Strength: RUE: Shoulder flexion/extension/internal rotation/external rotation, elbow flexion/extension, finger flexion/extension, client server developer strength, interosseous 5/5 LUE: Shoulder flexion/extension/internal rotation/external rotation, elbow flexion/extension, finger flexion/extension, client server developer strength, interosseous 5/5 RLE: Hip flexion, knee flexion/extension, ankle plantar flexion/dorsiflexion 5/5 LLE: Hip flexion, knee flexion/extension, ankle plantar flexion/dorsiflexion 5/5 Principal Diagnosis CHF, HTN, KATHLEEN Discharge Exam General: Alert, oriented. No acute distress. Obese gentleman seated on bed, legs hanging over the side. Skin: Some noted silvery plaques on elbows bilaterally and anterior chest wall Psych: Appropriate mood and affect Neuro: No gross deficits HEENT: NC/AT, PERRLA, EOMI, oropharynx moist. Chest: Nontender to palpation. CV: RRR, Normal s1, s2. No murmurs appreciated. Sounds decreased due to body habitus. Resp: Breath sounds clear bilaterally but decreased, no increased effort of breathing. No crackles/rhonchi/rales. Abdomen: Soft, nontender. Extremities: +++ edema in lower extremities bilaterally. Venous stasis changes also noted. Discharge Data Allergies Allergy/AdvReac Type Severity Reaction Status Date / Time shellfish derived Allergy EDEMA Verified 02/19/20 19:15 Consultations 02/19/20 18:59 ED Decision to Admit Stat Ordered Studies 02/19/20 20:14 US liver Routine Hospital Course (1) Acute respiratory failure with hypoxia and hypercapnia: 44 y/o M smoker who presents with 1 year of slowly progressive lower extremity and abdominal edema acutely worsened over the last month. He has had new right-sided leg edema with additional scrotal/penile edema in the last week. He has been admitted for fluid overload with new oxygen requirement and new left bundle branch block. Acute hypercapneic/hypoxic respiratory failure 2/2 CHF -On NC periodically while hospitalized, on RA on discharge -Obesity Hypoventilation Syndrome/KATHLEEN likely contributing to hypercapnia, possible cause of HTN (see below) -consider CPAP use outpatient Acute Diastolic CHF Patient with progressive lower extremity and lower abdominal swelling over the last year, progressive weight gain New shortness of breath over the last month, does not sleep laying down Chest x-ray shows cardiomegaly and radiographic evidence of mild pulmonary vascular congestion. No lobar consolidation No chest pain, no signs of ACS but patient had a left bundle branch block not previously known at urgent care Troponin mild increase BNP 2090 TTE - EF 50-55%, LVH Brisk diuresis to Lasix 60 mg in ED, Lasix 60mg IV 3 times daily. Discharged with Lasix 20mg daily, can titrate up as needed. -KCl 20meq TID while diuresing. Consider BMP checks and K+ supplementation while on Lasix. Hypertension Patient hypertensive on arrival to ED, good clinical response to both breathing and blood pressure to nitroglycerin 1 inch, continue -Added antihypertensive - Lisinopril 20mg with some improvement - few readings in 120s. - consider adding amlodipine if persistently elevated. -consider KATHLEEN as a possible cause, consider CPAP Elevated troponin Patient without current or prior chest pain Troponin mildly elevated to 0.132, Likely demand ischemia TTE with no wall motion abnormality Elevated INR, AST No known liver disease Patient denies any current or former alcohol use Hepatic steatosis on Liver ultrasound Daily tobacco use Nicotine patch 14 mg as needed Nicorette gum as needed -strongly consider smoking cessation Severe obesity, increased body habitus with high neck circumference Patient suspicious for hypo-ventilation syndrome/KATHLEEN No CPAP at home Consider starting CPAP Leg cramps -likely from diuresis. follow K and mag level and replace (2) CHF (congestive heart failure): (3) Hypertension: (4) Troponin level elevated: Total Time Total Time Spent Total Time Spent (In Minutes): >30 Discharge Plan Discharge Items Patient Disposition: Home - Self-Care Reason For Visit: CHF, AHRF Discharge Diagnosis: CHF Activity: Per Instructions section Non-emergency contact: Primary Care Provider Call non-emergency contact if: your symptoms worsen Follow-up/Referrals: Kimberly Paulino MD [Physician] - 02/25/20 3:10 pm (DR. BURGESS) PCP,NO [Primary Care Provider] - ([facility] WILL BE IN CONTACT WITH YOU REGARDING A FOLLOW-UP APPOINTMENT WITHIN THE NEXT FEW DAYS. ) Diet: Low Sodium (2gm) Addtl Attending Provider Instructions: Mr. Ferrer, you are being discharged home. It is very important that you take your medications you are being prescribed to help with the swelling and your high blood pressure. Concerning the swelling: Take the Lasix 20mg you are being prescribed twice a day to help with the swelling. Please follow up with your primary care provider in the next week to ensure that your labs and kidney function while on the medication remain stable. They can also go up on the medication dose if needed. Please continue to monitor what you eat, keep the sodium in your food below 1500 as eating food with a lot of salt can cause you to keep fluid. Continue to keep your legs elevated whenever you sitting down. Concerning your high blood pressure You are being started on a new medication for your high blood pressure, Lisinopril 20mg. Please take one pill everyday. Please follow up with your primary care provider for this as well. They will continue to check on your blood pressure and determine if you need to increase your dose. You have also been scheduled with an outpatient appointment with a keyboard specialist. Please keep that appointment as scheduled. Sleep apnea can also contribute to your high blood pressure. It looks like you could benefit from a CPAP machine to help you breathe at night while you're sleeping. Your primary care provider will help you with obtaining one. It was a pleasure taking care of you during your stay here! Pending Studies at Discharge: No Stand-Alone Forms: [employer], Smoking Cessation Medications and DC Order Prescriptions: New lisinopril 20 mg tablet 20 mg PO DAILY Qty: 30 RF: 5 furosemide [Lasix] 20 mg tablet 20 mg PO DAILY Qty: 30 RF: 5 Discontinued Otc Diurex Max 2 tabs PO Q6 PRN (Reason: Edema) RF: 0 Discharge Orders: Discharge Order (Routine); Ordered 02/22/20 Ordered By: Helene Burgess Admission Data Admit Date/Time: 02/19/20 20:07 Attending Provider: Matias Payan Admit Provider: Sina Albert Primary Care Provider: PCP,NO Other Providers: Ema Camacho ; Kimberly Paulino Other Interventions: Discharge Summary Assessment (RN) Last Done: 02/22/20 13:11 DC Date/Time DO NOT enter until pt leaves facility: 02/22/20 15:04 Supervising Physician Co-Signing Physician Notes I personally examined the patient and verified all deng points of history and exam, discussed case, and agree with decision making with Dr Burgess. feeling better wants to go home. vitals noted nad heent nc at mmm breathing unlabored no accessory muscles good effort edema - HFpEF and probably R sided CHF from untreated KATHLEEN/OHS - now stable for home - ongoing med management for this - although suspect once we're able to get BiPAP or CPAP at home, over time his medication requirements are likely to lessen. HFpEF - LBBB, mild demand ischemia troponin, echo without RWMA. safe/stable for home. med management as above. outpt cardiology f/u O[facility]/KATHLEEN - sleep study, close f/u. discussed lifestyle change - he is very motivated - in a contest w family to try to lose 50lbs by Stacy; separately moved to [place] and loves the idea of biking and wants to learn to snowboard. safe for home, otherwise as above Resident Activity Tracking Resident Involvement: Resident Care Provided Care Provided: Adult Hospital Medicine
--- NOTE | 2020-02-22 18:49 | Billing Data ---
Date of Service February 22, 2020 Coding Level of Care Code D/C Day Management >30 mins
== END 2020-02-22 15:04 | disposition home or self-care (01) | DRG 291 ==
LOC: ED 17:07 → SUATTDRO 20:07 → 2W 20:07